=== PATIENT | female | born 1940 | race Caucasian/White ===

== ENCOUNTER 2020-03-28 11:08 | Emergency (ER) | payer MEDICARE, BC ==
--- NOTE | 2020-03-28 12:01 | EDM.PDOC ---
ED HPI GENERAL MEDICAL PROBLEM - General Chief Complaint: Genitourinary Problem Stated Complaint: UTI/DIZZY Time Seen by Provider: 03/28/20 12:00 Source of Information: Reports: Patient, RN, RN Notes Reviewed History Limitations: Reports: No Limitations - History of Present Illness INITIAL COMMENTS - FREE TEXT/NARRATIVE: Patient to ER with complaint of not feeling well. States she was seen at [facility] yesterday and diagnosed with UTI. Started on Macrobid. States she had chills during the night. States she has been drinking a lot of water today and states feeling better. Decreased appetite. He has lightheadedness, chills and nausea. No vomiting, diarrhea, chest pain and short of breath. 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: Reports: Other (see below) (Macrobid) - Related Data Allergies Allergy/AdvReac Type Severity Reaction Status Date / Time lisinopril Allergy Cough Verified 03/28/20 11:25 Home Meds: Home Meds Alendronate Sodium 70 mg PO Q7D 03/28/20 [History] Estrogens, Conjugated [Premarin Vaginal Crm] 1 applic VAG Q7D 03/28/20 [History] Losartan [Cozaar] 50 mg PO DAILY 03/28/20 [History] amLODIPine [Norvasc] 2.5 mg PO DAILY 03/28/20 [History] atenoloL [Atenolol] 50 mg PO DAILY 03/28/20 [History] nitrofurantoin macrocrystaL [Nitrofurantoin] 100 mg PO BID 03/28/20 [History] Past Medical History Cardiovascular History: Reports: Hypertension Genitourinary History: Reports: UTI, Recurrent Social & Family History - Tobacco Use Smoking Status *Q: Former Smoker Used Tobacco, but Quit: Yes Month/Year Tobacco Last Used: 50 + years ago ED ROS GENERAL - Review of Systems Review Of Systems: Comprehensive ROS is negative, except as noted in HPI. ED EXAM, GENERAL - Physical Exam Exam: See Below Exam Limited By: No Limitations General Appearance: Alert, WD/WN, No Apparent Distress Eye Exam: Bilateral Eye: EOMI, Normal Inspection, PERRL Ears: Normal External Exam, Normal Canal, Hearing Grossly Normal, Normal TMs Nose: Normal Inspection, Normal Mucosa, No Blood Throat/Mouth: Normal Inspection, Normal Lips, Normal Teeth, Normal Gums, Normal Oropharynx, Normal Voice, No Airway Compromise Head: Atraumatic, Normocephalic Neck: Normal Inspection, Supple, Non-Tender, Full Range of Motion Respiratory/Chest: No Respiratory Distress, Lungs Clear, Normal Breath Sounds, No Accessory Muscle Use, Chest Non-Tender Cardiovascular: Normal Peripheral Pulses, Regular Rate, Rhythm, No Edema, No Gallop, No JVD, No Murmur, No Rub GI/Abdominal: Normal Bowel Sounds, Soft, Non-Tender, No Organomegaly, No Distention, No Abnormal Bruit, No Mass (Female) Exam: Deferred Rectal (Female) Exam: Deferred Back Exam: Normal Inspection, Full Range of Motion, NT Extremities: Normal Inspection, Normal Range of Motion, Non-Tender, Normal Capillary Refill, No Pedal Edema Neurological: Alert, Oriented, CN II-XII Intact, Normal Cognition, Normal Gait, Normal Reflexes, No Motor/Sensory Deficits Psychiatric: Normal Affect, Normal Mood Skin Exam: Dry Lymphatic: No Adenopathy Course - Vital Signs Last Recorded V/S: Last Vital Signs Temp 97.2 F 03/28/20 11:26 Pulse 72 03/28/20 11:26 Resp 18 03/28/20 11:26 BP 108/87 03/28/20 11:26 Pulse Ox 97 03/28/20 11:26 - Orders/Labs/Meds Orders: Active Orders 24 hr Category Date Time Status Peripheral IV Care [RC] . DIRECTED Care 03/28/20 12:58 Active Peripheral IV Insertion Adult [OM.PC] Stat Oth 03/28/20 12:58 Ordered Labs: Laboratory Tests 03/28/20 03/28/20 03/28/20 Range/Units 11:28 12:17 12:17 WBC 13.2 H (5.0-10.0) 10^3/uL RBC 3.90 L (4.2-5.4) 10^6/uL Hgb 13.1 (12.0-16.0) g/dL Hct 36.4 L (37.0-47.0) % MCV 93.3 (80-100) fL MCH 33.6 (27.0-34.0) pg MCHC 36.0 H (33.0-35.0) g/dL Plt Count 209 (150-450) 10^3/uL Neut % (Auto) 96.0 H (42.2-75.2) % Lymph % (Auto) 0.9 L (20.5-50.1) % [place] % (Auto) 3.0 (2-8) % Eos % (Auto) 0.0 L (1.0-3.0) % Baso % (Auto) 0.1 (0.0-1.0) % Sodium 129 L (136-145) mmol/L Potassium 3.4 L (3.5-5.1) mmol/L Chloride 96 L (98-107) mmol/L Carbon Dioxide 24 (21-32) mmol/L Anion Gap 12.4 (7-13) mEq/L BUN 9 (7-18) mg/dL Creatinine 0.71 (0.55-1.02) mg/dL Est Cr Clr Drug Dosing 49.15 mL/min Estimated GFR (MDRD) > 60 BUN/Creatinine Ratio 12.7 (No establ ref range) Glucose 121 H (74-99) mg/dL Calcium 8.3 L (8.5-10.1) mg/dL Total Bilirubin 0.6 (0.2-1.0) mg/dL AST 18 (15-37) U/L ALT 19 (14-59) U/L Alkaline Phosphatase 39 L (46-116) U/L Total Protein 6.1 L (6.4-8.2) g/dL Albumin 3.2 L (3.4-5.0) g/dL Globulin 2.9 Albumin/Globulin Ratio 1.10 Urine Color Yellow (YELLOW) Urine Appearance Slightly cloudy (CLEAR) Urine pH 7.5 (5.0-9.0) Ur Specific [place] 1.020 (1.005-1.030) Urine Protein Negative (NEGATIVE) Urine Glucose (UA) Negative (NEGATIVE) Urine Ketones Negative (NEGATIVE) Urine Occult Blood Trace-intact H (NEGATIVE) Urine Nitrite Negative (NEGATIVE) Urine Bilirubin Negative (NEGATIVE) Urine Urobilinogen 0.2 (0.2-1.0) mg/dL Ur Leukocyte Esterase Negative (NEGATIVE) Urine RBC 5-10 H /HPF Urine WBC 0-5 (0-5/HPF) /HPF Ur Epithelial Cells Moderate H (NOT SEEN) /HPF Amorphous Sediment Few (NOT SEEN) /HPF Urine Bacteria Few (0-FEW/HPF) /HPF Urine Mucus Few H (NOT SEEN) /LPF Meds: Medications Discontinued Medications Generic Name Dose Route Start Last Admin Trade Name Laila PRN Reason Stop Dose Admin Sodium Chloride 1,000 mls @ 999 mls/hr 03/28/20 12:57 03/28/20 13:39 Normal Saline IV 03/28/20 13:57 Not Given .BOLUS ONE Sodium Chloride 10 ml 03/28/20 12:58 Saline Flush FLUSH ASDIRECTED PRN Keep Vein Open - Re-Assessments/Exams Free Text/Narrative Re-Assessment/Exam: 03/28/20 13:29 Patient declines IV fluids at this time. States she would rather go home and try to drink plenty of water. Departure - Departure Time of Disposition: 13:30 Disposition: Home, Self-Care 01 Condition: Fair Clinical Impression: Light-headed feeling - Discharge Information *PRESCRIPTION DRUG MONITORING PROGRAM REVIEWED*: No *COPY OF PRESCRIPTION DRUG MONITORING REPORT IN PATIENT LUZ MARINA: No Instructions: Urinary Tract Infection, Adult, [id number], Dizziness, [id number] Referrals: PCP,Unknown [Primary Care Provider] - Forms: ED Department Discharge Additional Instructions: Continue taking Macrobid as prescribed Drink plenty of water Follow-up with your primary care provider next week in the clinic Return to the ER with any worsening of symptoms Sepsis Event Note (ED) - Evaluation Sepsis Screening Result: No Definite Risk - Focused Exam Vital Signs: Vital Signs Temp Pulse Resp BP Pulse Ox 03/28/20 11:26 97.2 F 72 18 108/87 97 - My Orders Last 24 Hours: My Active Orders 03/28/20 12:58 Peripheral IV Care [RC] . DIRECTED Peripheral IV Insertion Adult [OM.PC] Stat - Assessment/Plan Last 24 Hours: My Active Orders 03/28/20 12:58 Peripheral IV Care [RC] . DIRECTED Peripheral IV Insertion Adult [OM.PC] Stat
[2020-03-28 12:53] LABS: ANION GAP 12.4 mEq/L (7-13); CHLORIDE,CL 96 mmol/L (98-107); SODIUM,NA 129 mmol/L (136-145)
[2020-03-28] MEDS ORDERED: Sodium Chloride 0.9% 1,000 ML IV ONE (12:57)
[2020-03-28] MEDS ORDERED: Sodium Chloride 0.9% 10 ML Syringe FLUSH PRN (12:58)
== END 2020-03-28 13:39 | disposition home or self-care (01) ==
LOC: DL.ED 11:08
DX: R42 Dizziness and giddiness (principal); I10 Essential (primary) hypertension; Z88.8 Allergy status to other drugs, medicaments and biological substances; Z79.899 Other long term (current) drug therapy
CPT/HCPCS: 36415; 80053; 81001; 85025; 99284

== ENCOUNTER 2020-03-28 19:43 | Emergency (ER) | payer MEDICARE, BC ==
[2020-03-28] MEDS ORDERED: Sodium Chloride 0.9% 10 ML Syringe FLUSH PRN (21:03)
[2020-03-28] MEDS ORDERED: cefTRIAXone 2 GM in Sodium Chloride 0.9% 100 ML IV ONE (21:04)
[2020-03-28 21:38] LABS: ANION GAP 12.2 mEq/L (7-13); CHLORIDE,CL 94 mmol/L (98-107); SODIUM,NA 127 mmol/L (136-145)
--- NOTE | 2020-03-28 22:04 | EDM.PDOC ---
ED HPI GENERAL MEDICAL PROBLEM - General Chief Complaint: Genitourinary Problem Stated Complaint: BLADDER INFECTION, SHAKING Time Seen by Provider: 03/28/20 21:00 - History of Present Illness INITIAL COMMENTS - FREE TEXT/NARRATIVE: Patient comes emergency department for the second time today with concerns of shaking body aches questionable fever. This patient was seen in the clinic recently and diagnosed with a urinary tract infection was started on Macrobid. She developed right flank pain that radiated down her back last night and today. She has had some nausea without vomiting. Generalized malaise fatigue and body aches. Chills at home. She has no hematuria dysuria or urinary frequency. No other abdominal pain. No recent falls or injury to her back. No paresthesias of her lower extremities. No change in the functionality of her lower extremities. No chest pain no shortness of breath or difficulty breathing. No cough or congestion. No Covid exposure. Denies any Covid symptoms. Left Flank Pain Score (Numeric/FACES): 1 - Related Data Allergies Allergy/AdvReac Type Severity Reaction Status Date / Time lisinopril Allergy Cough Verified 03/28/20 20:02 Home Meds: Home Meds Alendronate Sodium 70 mg PO Q7D 03/28/20 [History] Estrogens, Conjugated [Premarin Vaginal Crm] 1 applic VAG Q7D 03/28/20 [History] Losartan [Cozaar] 50 mg PO DAILY 03/28/20 [History] amLODIPine [Norvasc] 2.5 mg PO DAILY 03/28/20 [History] atenoloL [Atenolol] 50 mg PO DAILY 03/28/20 [History] nitrofurantoin macrocrystaL [Nitrofurantoin] 100 mg PO BID 03/28/20 [History] Past Medical History Cardiovascular History: Reports: Hypertension Genitourinary History: Reports: UTI, Recurrent Social & Family History - Tobacco Use Smoking Status *Q: Never Smoker Second Hand Smoke Exposure: No - Caffeine Use Caffeine Use: Reports: None - Recreational Drug Use Recreational Drug Use: No ED ROS GENERAL - Review of Systems Review Of Systems: Comprehensive ROS is negative, except as noted in HPI. ED EXAM, RENAL/ - Physical Exam Exam: See Below Exam Limited By: No Limitations General Appearance: Alert, WD/WN, No Apparent Distress Eye Exam: Bilateral Eye: EOMI, PERRL Ears: Normal External Exam Nose: Normal Inspection Throat/Mouth: Normal Inspection Head: Atraumatic, Normocephalic Neck: Normal Inspection, Supple Respiratory/Chest: No Respiratory Distress, Lungs Clear, Normal Breath Sounds, No Accessory Muscle Use Cardiovascular: Normal Peripheral Pulses, Regular Rate, Rhythm GI/Abdominal: Normal Bowel Sounds, Soft, Non-Tender (Female) Exam: Deferred Rectal (Female) Exam: Deferred Back Exam: Full Range of Motion, CVA Tenderness (R). No: CVA Tenderness (L), Decreased Range of Motion, Muscle Spasm, Paraspinal Tenderness, Vertebral Tenderness Extremities: Normal Inspection, Normal Range of Motion, Normal Capillary Refill Neurological: Alert, Oriented, Normal Cognition, Normal Gait, No Motor/Sensory Deficits Psychiatric: Normal Affect, Normal Mood Skin Exam: Dry, Intact, Cool Lymphatic: No Adenopathy Course - Vital Signs Last Recorded V/S: Last Vital Signs Temp 98.5 F 03/28/20 19:54 Pulse 85 03/28/20 19:54 Resp 18 03/28/20 19:54 BP 136/72 03/28/20 19:54 Pulse Ox 98 03/28/20 19:54 - Orders/Labs/Meds Orders: Active Orders 24 hr Category Date Time Status Peripheral IV Care [RC] . DIRECTED Care 03/28/20 21:03 Active Peripheral IV Insertion Adult [OM.PC] Stat Oth 03/28/20 21:02 Ordered Labs: Laboratory Tests 03/28/20 03/28/20 03/28/20 Range/Units 19:53 21:13 21:13 WBC 10.6 H (5.0-10.0) 10^3/uL RBC 4.04 L (4.2-5.4) 10^6/uL Hgb 13.6 (12.0-16.0) g/dL Hct 37.6 (37.0-47.0) % MCV 93.1 (80-100) fL MCH 33.7 (27.0-34.0) pg MCHC 36.2 H (33.0-35.0) g/dL Plt Count 197 (150-450) 10^3/uL Neut % (Auto) 96.9 H (42.2-75.2) % Lymph % (Auto) 0.8 L (20.5-50.1) % [place] % (Auto) 2.1 (2-8) % Eos % (Auto) 0.1 L (1.0-3.0) % Baso % (Auto) 0.1 (0.0-1.0) % Sodium 127 L (136-145) mmol/L Potassium 3.2 L (3.5-5.1) mmol/L Chloride 94 L (98-107) mmol/L Carbon Dioxide 24 (21-32) mmol/L Anion Gap 12.2 (7-13) mEq/L BUN 9 (7-18) mg/dL Creatinine 0.70 (0.55-1.02) mg/dL Est Cr Clr Drug Dosing 48.71 mL/min Estimated GFR (MDRD) > 60 BUN/Creatinine Ratio 12.9 (No establ ref range) Glucose 122 H (74-99) mg/dL Calcium 7.9 L (8.5-10.1) mg/dL Total Bilirubin 0.6 (0.2-1.0) mg/dL AST 21 (15-37) U/L ALT 21 (14-59) U/L Alkaline Phosphatase 40 L (46-116) U/L C-Reactive Protein 17.1 H (0.0-0.9) mg/dL Total Protein 6.0 L (6.4-8.2) g/dL Albumin 3.2 L (3.4-5.0) g/dL Globulin 2.8 Albumin/Globulin Ratio 1.14 Urine Color Dark yellow (YELLOW) Urine Appearance Slightly cloudy (CLEAR) Urine pH 6.5 (5.0-9.0) Ur Specific [place] 1.025 (1.005-1.030) Urine Protein Negative (NEGATIVE) Urine Glucose (UA) Negative (NEGATIVE) Urine Ketones Negative (NEGATIVE) Urine Occult Blood Trace-intact H (NEGATIVE) Urine Nitrite Negative (NEGATIVE) Urine Bilirubin Negative (NEGATIVE) Urine Urobilinogen 0.2 (0.2-1.0) mg/dL Ur Leukocyte Esterase Negative (NEGATIVE) Urine RBC 5-10 H /HPF Urine WBC 0-5 (0-5/HPF) /HPF Ur Epithelial Cells Few (NOT SEEN) /HPF Amorphous Sediment Rare (NOT SEEN) /HPF Urine Bacteria Rare (0-FEW/HPF) /HPF Urine Mucus Rare (NOT SEEN) /LPF Meds: Medications Discontinued Medications Generic Name Dose Route Start Last Admin Trade Name Laila PRN Reason Stop Dose Admin Ceftriaxone Sodium 2 gm/ 100 mls @ 200 mls/hr 03/28/20 21:04 03/28/20 21:53 Sodium Chloride IV 03/28/20 21:33 Infused ONETIME ONE Infusion Sodium Chloride 10 ml 03/28/20 21:03 03/28/20 21:12 Saline Flush FLUSH 10 ml ASDIRECTED PRN Administration Keep Vein Open - Re-Assessments/Exams Free Text/Narrative Re-Assessment/Exam: 03/29/20 01:49 Patient does have a mild elevation of her WBC although she has a quite impressive CRP at 17. Her urinalysis does not show any infection at this time she has been on Macrobid so this could cloud the testing. Reviewing her labs in the clinic she clearly was nitrite positive. She does have some blood in there at this time which could be from the continued urinary tract infection and actually I think this is more likely due to a pyelonephritis with the complaints of generalized nausea fatigue body aches fever chills and flank pain. She was given a dose of Rocephin in the emergency department. We will discharge her home with Zofran and Keflex for her pyelonephritis. Anything new or worse she is to recheck. She is comfortable with this plan and her questions are answered. Departure - Departure Time of Disposition: 21:57 Disposition: Home, Self-Care 01 Clinical Impression: Pyelonephritis, Hyponatremia - Discharge Information Instructions: Pyelonephritis, Adult, [id number] Forms: ED Department Discharge Additional Instructions: Cephalexin 1 tablet 4 times a day for the next 10 days. RX given to the patient. Zofran 1 tablet every 6 hrs as needed for nausea. RX given to the patient. Try to increase your salt intake. Saltine crackers are good as well. Return to the ED if new or worsening symptoms especially uncontrolled fever with Tylenol and or Ibuprofen unable to keep your anti-biotics down. See your PCP on thursday for recheck. Sepsis Event Note (ED) - Evaluation Sepsis Screening Result: No Definite Risk - Focused Exam Vital Signs: Vital Signs Temp Pulse Resp BP Pulse Ox 03/28/20 19:54 98.5 F 85 18 136/72 98 - My Orders Last 24 Hours: My Active Orders 03/28/20 21:02 Peripheral IV Insertion Adult [OM.PC] Stat 03/28/20 21:03 Peripheral IV Care [RC] . DIRECTED - Assessment/Plan Last 24 Hours: My Active Orders 03/28/20 21:02 Peripheral IV Insertion Adult [OM.PC] Stat 03/28/20 21:03 Peripheral IV Care [RC] . DIRECTED Assessment:: Pyelonephritis Hyponatremia acute on chronic. Plan: Cephalexin 1 tablet 4 times a day for the next 10 days. RX given to the patient. Zofran 1 tablet every 6 hrs as needed for nausea. RX given to the patient. Try to increase your salt intake. Saltine crackers are good as well. Return to the ED if new or worsening symptoms especially uncontrolled fever with Tylenol and or Ibuprofen unable to keep your anti-biotics down. See your PCP on thursday for recheck.
== END 2020-03-28 22:22 | disposition home or self-care (01) ==
LOC: DL.ED 19:43
DX: N12 Tubulo-interstitial nephritis, not specified as acute or chronic (principal); E87.1 Hypo-osmolality and hyponatremia; I10 Essential (primary) hypertension; Z79.899 Other long term (current) drug therapy; Z88.8 Allergy status to other drugs, medicaments and biological substances; R42 Dizziness and giddiness
CPT/HCPCS: 36415; 80053; 81001; 85025; 86140; 96365; 99283; 99284; J0696; J7050

== ENCOUNTER 2023-03-22 11:08 | Emergency (ER) | payer MEDICARE, BC ==
[2023-03-22] MEDS ORDERED: Sodium Chloride 0.9% 10 ML Syringe FLUSH PRN (11:22)
[2023-03-22 11:30] LABS: BASOPHILS PERCENT AUTO 1.1 % (0.0-1.0); EOSINOPHILS PERCENT AUTO 1.9 % (1.0-3.0); HEMATOCRIT 39.2 % (37.0-47.0); HEMOGLOBIN 13.9 g/dL (12.0-16.0); MEAN CORPUSCULAR HEMOGLOBIN 33.9 pg (27.0-34.0); MEAN CORPUSCULAR HGB CONC 35.5 g/dL (33.0-35.0); MEAN CORPUSCULAR VOLUME 95.6 fL (80-100); MONOCYTES PERCENT AUTO 13.4 % (2-8); NEUTROPHILS PERCENT AUTO 66.6 % (42.2-75.2); PLATELET COUNT,PLT 233 10^3/uL (150-450); WHITE BLOOD CELL COUNT,WBC 5.2 10^3/uL (5.0-10.0)
[2023-03-22 11:58] LABS: A/G RATIO 1.1; ALBUMIN 3.4 g/dL (3.4-5.0); ANION GAP 12.5 mEq/L (7-13); BILIRUBIN TOTAL 0.5 mg/dL (0.2-1.0); BUN/CREATININE RATIO 15.1 (No establ ref range); CALCIUM 8.6 mg/dL (8.5-10.1); CREATININE 0.73 mg/dL (0.55-1.02); EST CRCL DRUG DOSING (CG) 43.29 mL/min; MAGNESIUM 1.7 mg/dL (1.8-2.4); POTASSIUM,K 3.5 mmol/L (3.5-5.1); PROTEIN TOTAL,TP 6.5 g/dL (6.4-8.2)
[2023-03-22 12:04] LABS: APPEARANCE,URINE CLEAR (CLEAR); BILIRUBIN,URINE NEGATIVE (NEGATIVE); COLOR,URINE YELLOW (YELLOW); GLUCOSE,URINE NEGATIVE (NEGATIVE); KETONES,URINE NEGATIVE (NEGATIVE); LEUKOCYTE ESTERASE,URINE NEGATIVE (NEGATIVE); NITRITE,URINE NEGATIVE (NEGATIVE); OCCULT BLOOD,URINE NEGATIVE (NEGATIVE); PROTEIN,URINE NEGATIVE (NEGATIVE); UROBILINOGEN,URINE 0.2 mg/dL (0.2-1.0)
[2023-03-22] MEDS ORDERED: Dexamethasone 4 MG Tab PO ONE (12:39)
== END 2023-03-22 12:55 | disposition home or self-care (01) ==
LOC: DL.ED 11:08
DX: H83.02 Labyrinthitis, left ear (principal); I10 Essential (primary) hypertension; Z88.8 Allergy status to other drugs, medicaments and biological substances
CPT/HCPCS: 36415; 80053; 81003; 83735; 84484; 85025; 93005; 99284; J8540; 93010; J3490